=== PATIENT | female | born 1990 | race Two or more races ===

== ENCOUNTER 2018-05-17 06:45 | Emergency (ER) | payer SELFPAY ==
[~2018-05-17] VITALS: Ht 157.5 cm; Wt 54.4 kg
[2018-05-17] MEDS ORDERED: ONDANSETRON HCL INJ 2 MG/ML VIAL IV STA (07:06)
[2018-05-17] MEDS ORDERED: MORPHINE SULFATE 2 MG/ML SYR IV STA (07:06)
[2018-05-17] MEDS ORDERED: SODIUM CHLORIDE 0.9% 1000ML 1,000 ML IV ONE (07:15)
[2018-05-17] MEDS ORDERED: CEFTRIAXONE SOD 1 GM VIAL IV SCH (10:15)
--- NOTE | 2018-05-17 10:23 | Diagnostic Imaging Report ---
EXAM: CT Abdomen and Pelvis WITHOUT contrast INDICATION: Right-sided pain. ^[id number] ^[id number] COMPARISON: None. TECHNIQUE: Abdomen and pelvis were scanned utilizing a multidetector helical scanner from the lung base to the pubic symphysis without administration of IV contrast. Absence of intravenous contrast decreases sensitivity for detection of focal lesions and vascular pathology. Coronal and sagittal reformations were obtained. Routine protocol was performed. IV CONTRAST: None ORAL CONTRAST: Administered. COMPLICATIONS: None RADIATION DOSE: Total DLP: 584.38 mGy*cm Estimated effective dose: (DLP x 0.015 x size factor) mSv CTDIvol has been reviewed. It is below the limits set by the Radiation Protocol Committee (RPC). FINDINGS: LINES and TUBES: None. LOWER THORAX: Unremarkable HEPATOBILIARY: Unenhanced liver is unremarkable. No biliary ductal dilation. GALLBLADDER: No radio-opaque stones or sludge. No wall thickening. SPLEEN: No splenomegaly. PANCREAS: No focal masses or ductal dilatation. ADRENALS: No adrenal nodules KIDNEYS/URETERS: No hydronephrosis. Limited for evaluation of renal parenchyma without intravenous contrast. No stones. GI TRACT: No abnormal distention, wall thickening, or evidence of bowel obstruction. Appendix is normal. PELVIC ORGANS/BLADDER: Enlarged uterus. LYMPH NODES: No lymphadenopathy. VESSELS: Unremarkable. PERITONEUM / RETROPERITONEUM: No free air or fluid. BONES: Unremarkable. SOFT TISSUES: Unremarkable. IMPRESSION: 1. Limited study without intravenous contrast. 2. No definite evidence of acute inflammatory process in the abdomen/pelvis. 3. Normal appendix. 4. Enlarged uterus. Signed by: Dr. Abdoul Alamo MD on 05/17/2018 10:20 AM
== END 2018-05-17 11:16 | disposition home or self-care (01) ==
LOC: FSED 06:45
DX: O86.22 Infection of bladder following delivery (principal); O86.89 Other specified puerperal infections; D72.829 Elevated white blood cell count, unspecified; R10.32 Left lower quadrant pain; R10.31 Right lower quadrant pain
CPT/HCPCS: 74176; 80053; 81003; 85025; 87086; 99284; J2270; J2405; J7030